=== PATIENT | male | born 1940 | race Caucasian/White ===

== ENCOUNTER 2020-02-27 10:50 | Inpatient (IN) | payer MEDICARE, BC ==
[2020-02-27] MEDS ORDERED: Acetaminophen 500 MG Tab PO ONE (11:13)
[2020-02-27] MEDS ORDERED: Ondansetron 4 MG/2 ML SDV IVPUSH ONE (11:14)
[2020-02-27] MEDS ORDERED: Sodium Chloride 0.9% 1,000 ML IV SCH (11:15)
--- NOTE | 2020-02-27 11:43 | CR ---
[id number] RAD/RAD Chest PA or AP 1V EXAM: FRONTAL CHEST INDICATION: FEVER, COUGH COMPARISON: None. DISCUSSION: Left greater than right base infiltrates. Borderline heart size without evidence of congestive heart failure. IMPRESSION: 1. Left greater than right base infiltrates. Cristian Morris MD 02/27/20 1142 Thank you for allowing us to participate in the care of your patient.
[2020-02-27] MEDS ORDERED: Azithromycin 500 MG in Sodium Chloride 0.9% 250 ML IV ONE (11:52)
[2020-02-27] MEDS ORDERED: cefTRIAXone 2 GM Vial IVPUSH ONE (11:53)
--- NOTE | 2020-02-27 11:56 | EDM.PDOC ---
ED HPI GENERAL MEDICAL PROBLEM - General Chief Complaint: Fever Stated Complaint: FEVER/COUGH/HEADACHE Time Seen by Provider: 02/27/20 11:19 Source of Information: Reports: Patient History Limitations: Reports: No Limitations - History of Present Illness INITIAL COMMENTS - FREE TEXT/NARRATIVE: Presents emergency room with his son for increasing weakness fever headache body aches chills. Patient was tested for Covid-19 4 days ago results are pending. Patient has been progressively getting worse in the past week. Denies any acute shortness of breath chest pain or abdominal pain. He notes does have a nonproductive cough. He does note having some intermittent nausea with no vomiting. Patient otherwise is healthy 79-year-old male does not take any home medications, medical history consists of BPH and history of UTIs in the past. He has had some orthopedic surgeries as well. The patient denies any known Covid-19 exposures. - Related Data Allergies Allergy/AdvReac Type Severity Reaction Status Date / Time latex Allergy blisters Verified 07/09/16 08:10 on hands chocolate flavor AdvReac Other Verified 07/09/16 08:10 egg AdvReac Rash Verified 07/09/16 08:10 Home Meds: Home Meds Cement-3 Fatty Acids [Fish Oil] 300 mg PO DAILY 06/10/16 [History] Non-Formulary Medication [NF Drug] 1 tab PO BID 07/09/16 [History] Non-Formulary Medication [NF Drug] 2 tab PO BID 07/09/16 [History] Past Medical History HEENT History: Cardiovascular History: Reports: None Other Cardiovascular History: Hyperlipidemia Respiratory History: Reports: None Gastrointestinal History: Reports: GERD Other Gastrointestinal History: throat surgery Genitourinary History: Reports: None Musculoskeletal History: Reports: Fracture Other Musculoskeletal History: 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, 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 Denies: Wheezing, Pleuritic Chest Pain Cardiovascular: Denies: Chest Pain, Palpitations, Syncope Endocrine: Reports: Fatigue GI/Abdominal: Reports: Nausea. Denies: Abdominal Pain, Vomiting Musculoskeletal: Reports: Muscle Pain Skin: Denies: Rash Neurological: Reports: Headache Psychiatric: Reports: No Symptoms Hematologic/Lymphatic: Reports: No Symptoms ED EXAM, SEPSIS - Physical Exam Exam: See Below Exam Limited By: No Limitations General Appearance: Alert, WD/WN, No Apparent Distress Ears: Normal External Exam, Normal TMs Nose: Normal Inspection, Normal Mucosa Throat/Mouth: Normal Inspection, Normal Lips, Normal Oropharynx Head: Atraumatic, Normocephalic Neck: Normal Inspection, Supple, Non-Tender Respiratory/Chest: No Respiratory Distress, No Accessory Muscle Use, Chest Non-Tender, Decreased Breath Sounds, Other (bilateral lower diminished breath sounds). No: Wheezing Cardiovascular: Normal Peripheral Pulses, Regular Rate, Rhythm, No Edema, No Murmur Peripheral Pulses: 2+: Radial (L), Radial (R), Posterior Tibial (L), Posterior Tibial (R), Dorsalis Pedis (L), Dorsalis Pedis (R) GI/Abdominal Exam: Normal Bowel Sounds, Soft, Non-Tender Back: Normal Inspection, Full Range of Motion Extremities: Normal Inspection, Normal Range of Motion, Non-Tender, No Pedal Edema. No: Bjorn's Sign Neurological: Alert, Oriented, Normal Cognition Psychiatric: Normal Mood Skin: Warm, Intact, No Rash, Diaphoretic Course - Vital Signs Last Recorded V/S: Last Vital Signs Temp 101.8 F H 02/27/20 11:00 Pulse 77 02/27/20 11:00 Resp 18 02/27/20 11:00 BP 125/74 02/27/20 11:00 Pulse Ox 92 L 02/27/20 11:00 - Orders/Labs/Meds Orders: Active Orders 24 hr Category Date Time Status CBC WITH AUTO DIFF [HEME] Stat Lab 02/27/20 11:11 Ordered CMP [COMPREHENSIVE METABOLIC PN,CMP] [CHEM] Stat Lab 02/27/20 11:11 Ordered CULTURE BLOOD [BC] Stat Lab 02/27/20 11:23 Ordered CULTURE BLOOD [BC] Stat Lab 02/27/20 11:23 Ordered LACTIC ACID [CHEM] Stat Lab 02/27/20 11:20 Ordered Sodium Chloride 0.9% [Normal Saline] 1,000 ml Med 02/27/20 11:15 Active IV ASDIRECTED Blood Culture x2 Reflex Set [OM.PC] Stat Oth 02/27/20 11:23 Ordered Medication Orders Sodium Chloride (Normal Saline) 1,000 mls @ 500 mls/hr IV ASDIRECTED JOSE D Meds: Medications Generic Name Dose Route Start Last Admin Trade Name Freq PRN Reason Stop Dose Admin Sodium Chloride 1,000 mls @ 500 mls/hr 02/27/20 11:15 Normal Saline IV ASDIRECTED JOSE D Discontinued Medications Generic Name Dose Route Start Last Admin Trade Name Freq PRN Reason Stop Dose Admin Acetaminophen 1,000 mg 02/27/20 11:13 Tylenol Extra Strength PO 02/27/20 11:14 ONETIME ONE Ondansetron HCl 4 mg 02/27/20 11:14 Zofran IVPUSH 02/27/20 11:15 ONETIME ONE - Re-Assessments/Exams Free Text/Narrative Re-Assessment/Exam: 02/27/20 12:41 Fluids and antibiotics were given after blood cultures drawn. Patient was retested for COVID-19 and influenza a and B. Results are pending. Labs essentially are negative and normal lactic, slightly elevated anion gap. His blood pressures have been stable no low mean arterial pressures. Patient did have sp08 between 90 to 91% on room air with no respiratory distress. We did place him on 1 1/2 L of oxygen and his SPO2 is 96%. Patient has no distress no respiratory distress no cough. Full COVID-19 PPE guidelines were carried out throughout the entire visit. Family were updated via phone on patient's plan of care. I did consult Carlos Vincent BUSINESS EDUCATION PROFESSOR who is on-call and he accepted his care. Free Text/Narrative Re-Assessment/Exam: Spoke with Belia MCGOVERN on-call Carlos she excepted Dileep's care. Patient was transferred to the floor for admission. Family were updated via phone. 02/27/20 13:02 Departure - Departure Time of Disposition: 13:02 Disposition: Admitted As Inpatient 68 Condition: Good Clinical Impression: Pneumonia Qualifiers: Pneumonia type: due to unspecified organism Laterality: bilateral Lung location: lower lobe of lung Qualified Code(s): J18.9 - Pneumonia, unspecified organism - Discharge Information *PRESCRIPTION DRUG MONITORING PROGRAM REVIEWED*: No *COPY OF PRESCRIPTION DRUG MONITORING REPORT IN PATIENT GAUTAM: No Referrals: Hemalatha Wang, BUSINESS EDUCATION PROFESSOR [Primary Care Provider] - Sepsis Event Note (ED) - Evaluation Sepsis Screening Result: No Definite Risk - Focused Exam Vital Signs: Vital Signs Temp Pulse Resp BP Pulse Ox 02/27/20 11:00 101.8 F H 77 18 125/74 92 L - My Orders Last 24 Hours: My Active Orders 02/27/20 11:11 CBC WITH AUTO DIFF [HEME] Stat CMP [COMPREHENSIVE METABOLIC PN,CMP] [CHEM] Stat 02/27/20 11:15 Sodium Chloride 0.9% [Normal Saline] 1,000 ml IV ASDIRECTED 02/27/20 11:20 LACTIC ACID [CHEM] Stat 02/27/20 11:23 CULTURE BLOOD [BC] Stat CULTURE BLOOD [BC] Stat Blood Culture x2 Reflex Set [OM.PC] Stat - Assessment/Plan Last 24 Hours: My Active Orders 02/27/20 11:11 CBC WITH AUTO DIFF [HEME] Stat CMP [COMPREHENSIVE METABOLIC PN,CMP] [CHEM] Stat 02/27/20 11:15 Sodium Chloride 0.9% [Normal Saline] 1,000 ml IV ASDIRECTED 02/27/20 11:20 LACTIC ACID [CHEM] Stat 02/27/20 11:23 CULTURE BLOOD [BC] Stat CULTURE BLOOD [BC] Stat Blood Culture x2 Reflex Set [OM.PC] Stat
[2020-02-27 12:17] LABS: ANION GAP 17.3 mmol/L (5-15); CHLORIDE,CL 99 mmol/L (98-115); SODIUM,NA 136 mmol/L (136-145)
[2020-02-27] MEDS: Sodium Chloride 0.9% 1,000 ML IV SCH (15:43)
[2020-02-27] MEDS ORDERED: Acetaminophen 325 MG Tab ONE (19:42)
[2020-02-27] MEDS: Acetaminophen 325 MG Tab PO PRN (19:55)
[2020-02-28] MEDS: Sodium Chloride 0.9% 1,000 ML IV SCH ×2 (00:08→09:02)
[2020-02-28] MEDS: Acetaminophen 325 MG Tab PO PRN ×5 (00:08→20:35)
--- NOTE | 2020-02-28 10:59 | PCM.HP.2 ---
H&P History of Present Illness - General Date of Service: 02/28/20 Admit Problem/Dx: Admission Diagnosis/Problem Admission Diagnosis/Problem Pneumonia Source of Information: Patient, Provider, Significant Other History Limitations: Reports: No Limitations Generalized Pain Score (Numeric/FACES): 4 - Related Data Allergies/Adverse Reactions: Allergies Allergy/AdvReac Type Severity Reaction Status Date / Time latex Allergy blisters Verified 02/27/20 15:34 on hands chocolate flavor AdvReac Other Verified 02/27/20 15:34 Home Medications: Home Meds Frannie-3 Fatty Acids [Fish Oil] 300 mg PO DAILY 06/10/16 [History] Non-Formulary Medication [NF Drug] 1 tab PO BID 07/09/16 [History] Non-Formulary Medication [NF Drug] 2 tab PO BID 07/09/16 [History] Past Medical History HEENT History: Cardiovascular History: Reports: None Other Cardiovascular History: Hyperlipidemia Respiratory History: Reports: None Gastrointestinal History: Reports: GERD Other Gastrointestinal History: throat surgery Genitourinary History: Reports: None Musculoskeletal History: Reports: Fracture Other Musculoskeletal History: 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, 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, right shoulder surgery Neurological History: Reports: None Psychiatric History: Reports: None Endocrine/Metabolic History: Reports: None Hematologic History: Reports: None Immunologic History: Reports: None Oncologic (Cancer) History: Reports: None Dermatologic History: Reports: None - Past Surgical History GI Surgical History: Social & Family History - Tobacco Use Smoking Status *Q: Never Smoker - Caffeine Use Caffeine Use: Reports: Coffee - Recreational Drug Use Recreational Drug Use: No H&P Review of Systems - Review of Systems: Review Of Systems: See Below General: Reports: Fever, Night Sweats, Diaphoresis. Denies: Chills HEENT: Reports: No Symptoms Pulmonary: Reports: Shortness of Breath, Cough, Sputum. Denies: Wheezing Cardiovascular: Reports: No Symptoms Gastrointestinal: Reports: No Symptoms Genitourinary: Reports: No Symptoms Musculoskeletal: Reports: No Symptoms Skin: Reports: No Symptoms Psychiatric: Reports: No Symptoms Neurological: Reports: No Symptoms Hematologic/Lymphatic: Reports: No Symptoms Immunologic: Reports: No Symptoms Exam - Exam Exam: See Below - Vital Signs Vital Signs: Last Vital Signs Temp 99.2 F 02/28/20 06:54 Pulse 77 02/28/20 06:37 Resp 20 02/28/20 06:37 BP 125/63 02/28/20 06:37 Pulse Ox 92 L 02/28/20 06:37 Weight: 181 lb 1.6 oz - Exam Quality Assessment: Supplemental Oxygen General: Alert, Oriented, Cooperative, Mild Distress HEENT: PERRLA, Hearing Intact, Mucosa Moist & [place], Nares Patent, Normal Nasal Septum, Posterior Pharynx Clear, Conjunctiva Clear, EOMI, EACs Clear, TMs Clear Neck: Supple Lungs: Rhonchi Cardiovascular: Regular Rate, Regular Rhythm, Normal S1, Normal S2 GI/Abdominal Exam: Normal Bowel Sounds, Soft (Male) Exam: Deferred Back Exam: No: CVA Tenderness (R) Extremities: No Pedal Edema Peripheral Pulses: 2+: Radial (R), Femoral (L) Skin: Warm, Dry, Intact Neurological: Cranial Nerves Intact, Reflexes Equal Bilateral Neuro Extensive - Mental Status: Alert, Oriented x3, Normal Mood/Affect, Normal Cognition Neuro Extensive - Motor, Sensory, Reflexes: CN II-XII Intact, Normal Gait, Normal Reflexes Psychiatric: Alert, Normal Affect, Normal Mood - Patient Data Lab Results Last 24 hrs: Laboratory Results - last 24 hr 02/27/20 02/27/20 02/27/20 Range/Units 11:35 11:35 11:45 WBC 4.13 L (5.00-10.00) 10^3/uL RBC 4.93 (4.50-6.00) 10^6/uL Hgb 13.6 (13.0-17.0) g/dL Hct 39.4 L (40.0-52.0) % MCV 79.9 L (82.0-92.0) fL MCH 27.6 (27.0-31.0) pg MCHC 34.5 (32.0-36.0) g/dL RDW 13.8 (11.5-14.5) % Plt Count 152 (150-400) 10^3/uL MPV 10.2 (7.4-10.4) fL Immature Gran % (Auto) 0.2 (0.0-5.0) % Neut % (Auto) 65.1 (50.0-70.0) % Lymph % (Auto) 23.5 (20.0-40.0) % Ramsey % (Auto) 10.7 H (2.0-8.0) % Eos % (Auto) 0.0 L (1.0-3.0) % Baso % (Auto) 0.5 (0.0-1.0) % Neut # (Auto) 2.69 (2.50-7.00) 10^3/uL Lymph # (Auto) 0.97 L (1.00-4.00) 10^3/uL Ramsey # (Auto) 0.44 (0.10-0.80) 10^3/uL Eos # (Auto) 0.00 L (0.10-0.30) 10^3/uL Baso # (Auto) 0.02 (0.00-0.10) 10^3/uL Immature Gran # (Auto) 0.01 (0.00-0.50) 10^3/uL Sodium 136 (136-145) mmol/L Potassium 4.1 (3.3-5.3) mmol/L Chloride 99 (98-115) mmol/L Carbon Dioxide 23.8 (21.0-32.0) mmol/L Anion Gap 17.3 H (5-15) mmol/L BUN 17 (6-25) mg/dL Creatinine 0.85 (0.51-1.17) mg/dL Est Cr Clr Drug Dosing 75.15 mL/min Estimated GFR (MDRD) > 60 mL/min Glucose 109 H (75 - 99) mg/dL Lactic Acid 1.0 (0.4-2.0) mmol/L Calcium 7.6 L (8.7-10.3) mg/dL Total Bilirubin 0.4 (0.2-1.0) mg/dL AST 39 H (15-37) U/L ALT 47 (12-78) U/L Alkaline Phosphatase 83 (46-116) IU/L Total Protein 7.1 (6.4-8.2) g/dL Albumin 3.27 (3.00-4.80) g/dL SARS CoV-2 RNA Rapid BILLIE (NEGATIVE) 02/27/20 Range/Units 11:46 WBC (5.00-10.00) 10^3/uL RBC (4.50-6.00) 10^6/uL Hgb (13.0-17.0) g/dL Hct (40.0-52.0) % MCV (82.0-92.0) fL MCH (27.0-31.0) pg MCHC (32.0-36.0) g/dL RDW (11.5-14.5) % Plt Count (150-400) 10^3/uL MPV (7.4-10.4) fL Immature Gran % (Auto) (0.0-5.0) % Neut % (Auto) (50.0-70.0) % Lymph % (Auto) (20.0-40.0) % Ramsey % (Auto) (2.0-8.0) % Eos % (Auto) (1.0-3.0) % Baso % (Auto) (0.0-1.0) % Neut # (Auto) (2.50-7.00) 10^3/uL Lymph # (Auto) (1.00-4.00) 10^3/uL Ramsey # (Auto) (0.10-0.80) 10^3/uL Eos # (Auto) (0.10-0.30) 10^3/uL Baso # (Auto) (0.00-0.10) 10^3/uL Immature Gran # (Auto) (0.00-0.50) 10^3/uL Sodium (136-145) mmol/L Potassium (3.3-5.3) mmol/L Chloride (98-115) mmol/L Carbon Dioxide (21.0-32.0) mmol/L Anion Gap (5-15) mmol/L BUN (6-25) mg/dL Creatinine (0.51-1.17) mg/dL Est Cr Clr Drug Dosing mL/min Estimated GFR (MDRD) mL/min Glucose (75 - 99) mg/dL Lactic Acid (0.4-2.0) mmol/L Calcium (8.7-10.3) mg/dL Total Bilirubin (0.2-1.0) mg/dL AST (15-37) U/L ALT (12-78) U/L Alkaline Phosphatase (46-116) IU/L Total Protein (6.4-8.2) g/dL Albumin (3.00-4.80) g/dL SARS CoV-2 RNA Rapid BILLIE Negative (NEGATIVE) Result Diagrams: 02/27/20 11:45 02/27/20 11:35 Sohail Results Last 24 hrs: Microbiology 02/27/20 11:46 Influenza Type A Antigen Screen - Final Nasopharyngeal Swab NEGATIVE INFLUENZA A VIRUS AG REFERENCE RANGE: NEGATIVE Influenza Type B Antigen Screen - Final NEGATIVE INFLUENZA B VIRUS AG REFERENCE RANGE: NEGATIVE Sepsis Event Note - Evaluation Sepsis Screening Result: No Definite Risk - Focused Exam Vital Signs: Vital Signs Temp Temp Pulse Resp BP Pulse Ox 02/28/20 06:54 99.2 F 02/28/20 06:37 101.4 F H 77 20 125/63 92 L 02/28/20 06:24 101.5 F H 02/28/20 03:00 100.4 F 65 16 112/62 92 L 02/28/20 00:38 99.8 F 02/28/20 00:08 99.4 F 02/27/20 23:00 100.5 F 63 20 101/51 L 94 L Problem List Initiated/Reviewed/Updated: Yes Orders Last 24hrs: Active Orders 24 hr Category Date Time Status Admission Status [Patient Status] [ADT] Routine ADT 02/27/20 13:40 Active Height and Weight [RC] UPON Care 02/27/20 15:17 Active Intake and Output [RC] 1400,2200,0600 Care 02/27/20 15:18 Active May Shower [RC] ASDIRECTED Care 02/27/20 15:17 Active Up to Chair [RC] ASDIRECTED Care 02/27/20 15:17 Active Regular Diet [DIET] Diet 02/27/20 Dinner Active CULTURE BLOOD [BC] Stat Lab 02/27/20 11:35 Received CULTURE BLOOD [BC] Stat Lab 02/27/20 11:45 Received PROCALCITONIN [REF] Routine Lab 02/27/20 11:45 Received Acetaminophen [TylenoL] Med 02/27/20 19:32 Active 650 mg PO Q4H PRN Sodium Chloride 0.9% [Normal Saline] 1,000 ml Med 02/27/20 11:15 Active IV ASDIRECTED Sodium Chloride 0.9% [Normal Saline] 1,000 ml Med 02/27/20 15:00 Active IV ASDIRECTED Blood Culture x2 Reflex Set [OM.PC] Stat Oth 02/27/20 11:23 Ordered Isolation [COMM] Routine Oth 02/27/20 12:26 Ordered Resuscitation Status Routine Resus Stat 02/27/20 15:17 Ordered Medication Orders Acetaminophen (Tylenol) 650 mg PO Q4H PRN PRN Reason: Pain/Fever Last Admin: 02/28/20 06:24 Dose: 650 mg Documented by: Admin: 02/28/20 00:08 Dose: 650 mg Documented by: Admin: 02/27/20 19:55 Dose: 650 mg Documented by: TIAN Sodium Chloride (Normal Saline) 1,000 mls @ 500 mls/hr IV ASDIRECTED [facility] Last Admin: 02/27/20 12:10 Dose: 500 mls/hr Documented by: ORI Sodium Chloride (Normal Saline) 1,000 mls @ 125 mls/hr IV ASDIRECTED [facility] Last Admin: 02/28/20 09:02 Dose: 125 mls/hr Documented by: Infusion: 02/28/20 08:08 Dose: 125 mls/hr Documented by: Admin: 02/28/20 00:08 Dose: 125 mls/hr Documented by: Infusion: 02/27/20 23:43 Dose: 125 mls/hr Documented by: Admin: 02/27/20 15:43 Dose: 125 mls/hr Documented by: YASH Assessment/Plan Comment:: History of present illness Dileep is a 79-year-old gentleman was admitted through the ED with a diagnoses of pneumonia. Patient did note some over the past week he has had increasing and fever, weakness, body aches and chills along with an nonproductive cough. He had Covid 19 testing 4 days ago which was still pending. He does admit to history of BPH with multiple UTIs in the past. Otherwise relatively healthy. Pertinent ED workup/findings Chest x-ray, bilateral pulmonary infiltrates Vital signs, map greater than 70 O2 sats 91%, T: 101.8 Negative inflammatory markers Negative Covid 19 Hospital course He was given azithromycin and Rocephin in the ED along with IV fluids. Overnight did have fever greater than 101 with night sweats Primary hospital problems Pneumonia, CAP, POA, Suspect viral etiology Disposition/overall plan --Although suspect viral etiology, will add Procan calcitonin and continue antibiotics until further workup --incentive spirometer --Oxygen to keep sats greater than 94% - Mortality Measure Prognosis:: Good
[2020-02-28] MEDS ORDERED: Azithromycin 500 MG in Sodium Chloride 0.9% 250 ML IV SCH ×2 (12:30→13:30)
[2020-02-28] MEDS ORDERED: cefTRIAXone 1 GM Vial IVPUSH SCH (12:30)
[2020-02-28 15:02] LABS: ANION GAP 19.3 mmol/L (5-15); CHLORIDE,CL 100 mmol/L (98-115); SODIUM,NA 135 mmol/L (136-145)
[2020-02-28] MEDS ORDERED: Piperacillin/Tazobactam/Dext 3.375 GM in Premix Bag 1 BAG IV SCH (16:00)
[2020-02-28] MEDS ORDERED: Sodium Chloride 0.9% 1,000 ML IV SCH (16:15)
[2020-02-28] MEDS: Albuterol 0.083% 2.5 MG/3 ML Neb Soln NEB SCH ×2 (17:13→20:53)
[2020-02-28] MEDS ORDERED: Furosemide 40 MG/4 ML VIAL IVPUSH ONE (19:40)
[2020-02-28] MEDS ORDERED: Ibuprofen 400 MG Tab PO PRN (19:59)
[2020-02-28 21:05] VITALS: BP 142/64
[2020-02-28 21:14] VITALS: PULSE 82
--- NOTE | 2020-02-28 21:32 | PCM.DCSUM1 ---
Discharge Summary - Hospital Course Free Text/Narrative:: Date of admission: 02/27/2020 Date of discharge: 02/28/2020 Admission diagnoses: #CA pneumonia, suspect viral Discharge diagnoses: #Acute hypoxic respiratory failure #Sepsis #Pneumonia, bilateral, suspect viral Consultations: Dr Lopez, [facility] for transfer Procedures: None Hospital course: Dileep is a 79-year-old gentleman was admitted through the ED with a diagnoses of pneumonia. Patient did note some over the past week he has had increasing and fever, weakness, body aches and chills along with an nonproductive cough. He had Covid 19 testing 4 days ago which was still pending. He does admit to history of BPH with multiple UTIs in the past. Otherwise relatively healthy. Pertinent ED workup/findings Chest x-ray, bilateral pulmonary infiltrates Vital signs, map greater than 70 O2 sats 91%, T: 101.8 Negative inflammatory markers Negative Covid 19 He was given azithromycin and Rocephin in the ED along with IV fluids. Overnight did have fever greater than 101 with night sweats 02/28/2020: Patient continued to have fever with high of 103.1, rigors and in creased oxygen demand. Blood gases completed showing pH 7.5, PCO2 27, PO2 56, HCO3 20, ABG O2sat 91.2, ABG base excess -4. Oxygen was increased to 10L/mask with difficulty maintaining oxygen saturation. Call placed for consult with Dr. Lopez in [facility] for transfer to higher level of care due to worsening oxygenation and breathing fatigue. He was accepted for admission to [facility] and transferred by EMS. Discharge and follow-up recommendations: - Discharge to [facility] via EMS, accepted by Dr. Lopez - New medications at discharge: none - Follow-up post hospitalization. - Discharge Data Discharge Date: 02/28/20 Discharge Disposition: DC/Tfer to Acute Hospital 02 Condition: Poor - Referral to Home Health Primary Care Physician: Hemalatha Wang NP - Discharge Plan *PRESCRIPTION DRUG MONITORING PROGRAM REVIEWED*: No *COPY OF PRESCRIPTION DRUG MONITORING REPORT IN PATIENT GAUTAM: No Home Medications: Home Meds [place]-3 Fatty Acids [Fish Oil] 300 mg PO DAILY 06/10/16 [History] Non-Formulary Medication [NF Drug] 1 tab PO BID 07/09/16 [History] Non-Formulary Medication [NF Drug] 2 tab PO BID 07/09/16 [History] - Discharge Summary/Plan Comment DC Time >30 min.: Yes - General Info Date of Service: 02/28/20 Subjective Update: 79 year old male sitting up in bed, increased work of breathing. Slow to answer, reports shortness of breath. - Review of Systems General: Reports: Fever, Weakness, Fatigue, Chills, Night Sweats. Denies: Appetite HEENT: Denies: Headaches, Sinus Congestion, Sore Throat Pulmonary: Reports: Shortness of Breath, Cough. Denies: Wheezing Cardiovascular: Denies: Chest Pain, Palpitations, Edema Gastrointestinal: Denies: Abdominal Pain, Diarrhea, Nausea, Vomiting Genitourinary: Denies: Dysuria, Incontinence, Hematuria Musculoskeletal: Denies: Neck Pain, Leg Pain, Joint Swelling Skin: Denies: Cyanosis, Diaphoresis, Rash Neurological: Reports: Weakness, Other (Slow to answer). Denies: Confusion - Patient Data Vitals - Most Recent: Last Vital Signs Temp 38.8 C H 02/28/20 21:00 Pulse 82 02/28/20 21:12 Resp 36 H 02/28/20 21:12 BP 142/64 H 02/28/20 21:00 Pulse Ox 88 L 02/28/20 21:12 Weight - Most Recent: 82.146 kg I&O - Last 24 hours: Intake & Output 02/28/20 02/28/20 02/28/20 06:59 14:59 22:59 Intake Total 1330 1277 Output Total 450 400 Balance 880 877 Lab Results - Last 24 hrs: Laboratory Results - last 24 hr 02/28/20 02/28/20 02/28/20 Range/Units 13:25 13:25 13:25 WBC 4.27 L (5.00-10.00) 10^3/uL RBC 4.62 (4.50-6.00) 10^6/uL Hgb 12.9 L (13.0-17.0) g/dL Hct 37.5 L (40.0-52.0) % MCV 81.2 L (82.0-92.0) fL MCH 27.9 (27.0-31.0) pg MCHC 34.4 (32.0-36.0) g/dL RDW 14.3 (11.5-14.5) % Plt Count 137 L (150-400) 10^3/uL MPV 10.3 (7.4-10.4) fL Immature Gran % (Auto) 0.5 (0.0-5.0) % Neut % (Auto) 72.0 H (50.0-70.0) % Lymph % (Auto) 21.8 (20.0-40.0) % [place] % (Auto) 5.2 (2.0-8.0) % Eos % (Auto) 0.0 L (1.0-3.0) % Baso % (Auto) 0.5 (0.0-1.0) % Neut # (Auto) 3.08 (2.50-7.00) 10^3/uL Lymph # (Auto) 0.93 L (1.00-4.00) 10^3/uL [place] # (Auto) 0.22 (0.10-0.80) 10^3/uL Eos # (Auto) 0.00 L (0.10-0.30) 10^3/uL Baso # (Auto) 0.02 (0.00-0.10) 10^3/uL Immature Gran # (Auto) 0.02 (0.00-0.50) 10^3/uL POC ABG pH (7.35-7.45) pH ABG pH POC ABG pCO2 (35-48) mmHg ABG pCO2 POC ABG pO2 (83-108) mmHg ABG pO2 POC ABG HCO3 (21-28) mmol/L ABG HCO3 ABG Total CO2 ABG O2 Sat (Calculated) (94-98) % ABG O2 Saturation POC ABG Base Excess (-2-3) mmol/L ABG Base Excess O2 Delivery Device Oxygen Flow Rate Blood Gas Comments Sodium 135 L (136-145) mmol/L Potassium 4.2 (3.3-5.3) mmol/L Chloride 100 (98-115) mmol/L Carbon Dioxide 19.9 L (21.0-32.0) mmol/L Anion Gap 19.3 H (5-15) mmol/L BUN 16 (6-25) mg/dL Creatinine 0.78 (0.51-1.17) mg/dL Est Cr Clr Drug Dosing 81.89 mL/min Estimated GFR (MDRD) > 60 mL/min Glucose 134 H (75 - 99) mg/dL Lactic Acid 2.1 H (0.4-2.0) mmol/L Calcium 7.6 L (8.7-10.3) mg/dL C-Reactive Protein (0.0-0.9) mg/dL Specimen Type Urine Color (YELLOW) Urine Appearance (CLEAR) Urine pH (5.0-9.0) Ur Specific [place] (1.005-1.030) Urine Protein (NEGATIVE) mg/dL Urine Glucose (UA) (NEGATIVE) mg/dL Urine Ketones (NEGATIVE) mg/dL Urine Occult Blood (NEGATIVE) Urine Nitrite (NEGATIVE) Urine Bilirubin (NEGATIVE) Urine Urobilinogen (0.2-1.0) E.U./dL Ur Leukocyte Esterase (NEGATIVE) Urine RBC (0-5) /HPF Urine WBC (0-5) /HPF Ur Epithelial Cells /LPF Amorphous Sediment (0/HPF) /HPF Urine Bacteria (NONE TO FEW) /HPF Urine Mucus (NEGATIVE) /LPF 02/28/20 02/28/20 02/28/20 Range/Units 13:25 13:32 13:32 WBC (5.00-10.00) 10^3/uL RBC (4.50-6.00) 10^6/uL Hgb (13.0-17.0) g/dL Hct (40.0-52.0) % MCV (82.0-92.0) fL MCH (27.0-31.0) pg MCHC (32.0-36.0) g/dL RDW (11.5-14.5) % Plt Count (150-400) 10^3/uL MPV (7.4-10.4) fL Immature Gran % (Auto) (0.0-5.0) % Neut % (Auto) (50.0-70.0) % Lymph % (Auto) (20.0-40.0) % [place] % (Auto) (2.0-8.0) % Eos % (Auto) (1.0-3.0) % Baso % (Auto) (0.0-1.0) % Neut # (Auto) (2.50-7.00) 10^3/uL Lymph # (Auto) (1.00-4.00) 10^3/uL [place] # (Auto) (0.10-0.80) 10^3/uL Eos # (Auto) (0.10-0.30) 10^3/uL Baso # (Auto) (0.00-0.10) 10^3/uL Immature Gran # (Auto) (0.00-0.50) 10^3/uL POC ABG pH 7.5 H (7.35-7.45) pH ABG pH Cancelled POC ABG pCO2 27 L (35-48) mmHg ABG pCO2 Cancelled POC ABG pO2 56 L (83-108) mmHg ABG pO2 Cancelled POC ABG HCO3 20 L (21-28) mmol/L ABG HCO3 Cancelled ABG Total CO2 Cancelled ABG O2 Sat (Calculated) 91.2 L (94-98) % ABG O2 Saturation Cancelled POC ABG Base Excess -4 L (-2-3) mmol/L ABG Base Excess Cancelled O2 Delivery Device Cancelled Oxygen Flow Rate Cancelled Blood Gas Comments Cancelled Sodium (136-145) mmol/L Potassium (3.3-5.3) mmol/L Chloride (98-115) mmol/L Carbon Dioxide (21.0-32.0) mmol/L Anion Gap (5-15) mmol/L BUN (6-25) mg/dL Creatinine (0.51-1.17) mg/dL Est Cr Clr Drug Dosing mL/min Estimated GFR (MDRD) mL/min Glucose (75 - 99) mg/dL Lactic Acid (0.4-2.0) mmol/L Calcium (8.7-10.3) mg/dL C-Reactive Protein 9.7 H (0.0-0.9) mg/dL Specimen Type Urine Color (YELLOW) Urine Appearance (CLEAR) Urine pH (5.0-9.0) Ur Specific [place] (1.005-1.030) Urine Protein (NEGATIVE) mg/dL Urine Glucose (UA) (NEGATIVE) mg/dL Urine Ketones (NEGATIVE) mg/dL Urine Occult Blood (NEGATIVE) Urine Nitrite (NEGATIVE) Urine Bilirubin (NEGATIVE) Urine Urobilinogen (0.2-1.0) E.U./dL Ur Leukocyte Esterase (NEGATIVE) Urine RBC (0-5) /HPF Urine WBC (0-5) /HPF Ur Epithelial Cells /LPF Amorphous Sediment (0/HPF) /HPF Urine Bacteria (NONE TO FEW) /HPF Urine Mucus (NEGATIVE) /LPF 02/28/20 02/28/20 Range/Units 18:35 19:18 WBC (5.00-10.00) 10^3/uL RBC (4.50-6.00) 10^6/uL Hgb (13.0-17.0) g/dL Hct (40.0-52.0) % MCV (82.0-92.0) fL MCH (27.0-31.0) pg MCHC (32.0-36.0) g/dL RDW (11.5-14.5) % Plt Count (150-400) 10^3/uL MPV (7.4-10.4) fL Immature Gran % (Auto) (0.0-5.0) % Neut % (Auto) (50.0-70.0) % Lymph % (Auto) (20.0-40.0) % [place] % (Auto) (2.0-8.0) % Eos % (Auto) (1.0-3.0) % Baso % (Auto) (0.0-1.0) % Neut # (Auto) (2.50-7.00) 10^3/uL Lymph # (Auto) (1.00-4.00) 10^3/uL [place] # (Auto) (0.10-0.80) 10^3/uL Eos # (Auto) (0.10-0.30) 10^3/uL Baso # (Auto) (0.00-0.10) 10^3/uL Immature Gran # (Auto) (0.00-0.50) 10^3/uL POC ABG pH 7.5 H (7.35-7.45) pH ABG pH POC ABG pCO2 27 L (35-48) mmHg ABG pCO2 POC ABG pO2 52 L (83-108) mmHg ABG pO2 POC ABG HCO3 20 L (21-28) mmol/L ABG HCO3 ABG Total CO2 ABG O2 Sat (Calculated) 89.1 L (94-98) % ABG O2 Saturation POC ABG Base Excess -4 L (-2-3) mmol/L ABG Base Excess O2 Delivery Device Oxygen Flow Rate Blood Gas Comments Sodium (136-145) mmol/L Potassium (3.3-5.3) mmol/L Chloride (98-115) mmol/L Carbon Dioxide (21.0-32.0) mmol/L Anion Gap (5-15) mmol/L BUN (6-25) mg/dL Creatinine (0.51-1.17) mg/dL Est Cr Clr Drug Dosing mL/min Estimated GFR (MDRD) mL/min Glucose (75 - 99) mg/dL Lactic Acid (0.4-2.0) mmol/L Calcium (8.7-10.3) mg/dL C-Reactive Protein (0.0-0.9) mg/dL Specimen Type Urincc Urine Color Yellow (YELLOW) Urine Appearance Cloudy H (CLEAR) Urine pH 6.0 (5.0-9.0) Ur Specific [place] 1.025 (1.005-1.030) Urine Protein 30 H (NEGATIVE) mg/dL Urine Glucose (UA) Negative (NEGATIVE) mg/dL Urine Ketones Trace H (NEGATIVE) mg/dL Urine Occult Blood Small H (NEGATIVE) Urine Nitrite Negative (NEGATIVE) Urine Bilirubin Negative (NEGATIVE) Urine Urobilinogen 0.2 (0.2-1.0) E.U./dL Ur Leukocyte Esterase Negative (NEGATIVE) Urine RBC 0-5 (0-5) /HPF Urine WBC 0-5 (0-5) /HPF Ur Epithelial Cells Few /LPF Amorphous Sediment Moderate H (0/HPF) /HPF Urine Bacteria Moderate H (NONE TO FEW) /HPF Urine Mucus Few H (NEGATIVE) /LPF MARITZA Results - Last 24 hrs: Microbiology 02/27/20 11:45 Aerobic Blood Culture - Preliminary Blood - Arm, Left NO GROWTH AFTER 1 DAY Anaerobic Blood Culture - Preliminary NO GROWTH AFTER 1 DAY 02/27/20 11:35 Aerobic Blood Culture - Preliminary Blood - Arm, Right NO GROWTH AFTER 1 DAY Anaerobic Blood Culture - Preliminary NO GROWTH AFTER 1 DAY Med Orders - Current: Current Medications Acetaminophen (Tylenol) 650 mg PO Q4H PRN PRN Reason: Pain/Fever Last Admin: 02/28/20 20:35 Dose: 650 mg Documented by: Albuterol (Proventil Neb Soln) 2.5 mg NEB Q4HRRT [facility] Last Admin: 02/28/20 20:53 Dose: 2.5 mg Documented by: Ceftriaxone Sodium (Rocephin) 1 gm IVPUSH Q24H [facility] Last Admin: 02/28/20 13:30 Dose: 1 gm Documented by: Piperacillin/Tazobactam/ (Dextrose 3.375 gm/ Premix) 50 mls @ 100 mls/hr IV Q6H [facility] Last Admin: 02/28/20 17:05 Dose: 100 mls/hr Documented by: Ibuprofen (Motrin) 400 mg PO Q8H PRN PRN Reason: Fever Discontinued Medications Acetaminophen (Tylenol Extra Strength) 1,000 mg PO ONETIME ONE Stop: 02/27/20 11:14 Last Admin: 02/27/20 12:10 Dose: 1,000 mg Documented by: Acetaminophen (Tylenol) Confirm Administered Dose 650 mg .ROUTE .STK-MED ONE Stop: 02/27/20 19:43 Last Admin: 02/27/20 19:56 Dose: Not Given Documented by: Ceftriaxone Sodium (Rocephin) 2 gm IVPUSH ONETIME ONE Stop: 02/27/20 11:54 Last Admin: 02/27/20 12:20 Dose: 2 gm Documented by: Furosemide (Lasix) 20 mg IVPUSH NOW ONE Stop: 02/28/20 19:41 Last Admin: 02/28/20 19:47 Dose: 20 mg Documented by: Sodium Chloride (Normal Saline) 1,000 mls @ 500 mls/hr IV ASDIRECTED [facility] Last Admin: 02/27/20 12:10 Dose: 500 mls/hr Documented by: Azithromycin 500 mg/ Sodium (Chloride) 250 mls @ 250 mls/hr IV ONETIME ONE Stop: 02/27/20 12:51 Last Admin: 02/27/20 12:45 Dose: 250 mls/hr Documented by: Sodium Chloride (Normal Saline) 1,000 mls @ 125 mls/hr IV ASDIRECTED [facility] Last Admin: 02/28/20 09:02 Dose: 125 mls/hr Documented by: Azithromycin 500 mg/ Sodium (Chloride) 250 mls @ 250 mls/hr IV Q24H [facility] Last Admin: 02/28/20 13:14 Dose: Not Given Documented by: Azithromycin 500 mg/ Sodium (Chloride) 250 mls @ 250 mls/hr IV Q24H [facility] Last Admin: 02/28/20 13:37 Dose: 250 mls/hr Documented by: Sodium Chloride (Normal Saline) 1,000 mls @ 150 mls/hr IV ASDIRECTED [facility] Last Admin: 02/28/20 18:39 Dose: 300 mls/hr Documented by: Ondansetron HCl (Zofran) 4 mg IVPUSH ONETIME ONE Stop: 02/27/20 11:15 Last Admin: 02/27/20 12:11 Dose: 4 mg Documented by: - Exam Physical Findings Comments:: GENERAL: Ill appearing adult in no mild distress with increased work of breathing HEENT: Normocephalic, atraumatic. Conjunctiva clear. Nares patent without discharge. Mucous membranes moist, posterior pharynx unremarkable. NECK: Supple, no masses. CV: Regular rate and rhythm, no murmurs, rubs, or gallops. 2+ radial pulses. PULMONARY: Increased work of breathing, tachypnea, crackles to bilateral bases and middle right, no wheezes. ABDOMEN: Positive bowel sounds, soft, nontender, nondistended. EXTREMITIES: No edema, cyanosis, or clubbing. MUSCULOSKELETAL: Moves all extremities well. NEUROLOGICAL: Slow to respond, but answer appropriately DERMATOLOGIC: No rashes or suspicious lesions in exposed areas. PSYCHIATRIC: Alert, appropriate affect.
== END 2020-02-28 22:03 | DRG 871 ==
LOC: KA.ED 10:50 → KA.MS 13:40
PROVIDERS: ADMIT Physician Assistant Medical; ATTEND Nurse Practitioner Family
DX: J18.9 Pneumonia, unspecified organism (principal); A41.89 Other specified sepsis; J15.9 Unspecified bacterial pneumonia; Z89.029 Acquired absence of unspecified finger(s); Z91.012 Allergy to eggs; Z91.02 Food additives allergy status; J12.9 Viral pneumonia, unspecified; J96.01 Acute respiratory failure with hypoxia; K21.9 Gastro-esophageal reflux disease without esophagitis; E78.5 Hyperlipidemia, unspecified; N40.0 Benign prostatic hyperplasia without lower urinary tract symptoms; Z87.440 Personal history of urinary (tract) infections; Z79.899 Other long term (current) drug therapy; Z91.040 Latex allergy status; Z91.018 Allergy to other foods; Z20.828 Contact with and (suspected) exposure to other viral communicable diseases
CPT/HCPCS: 36415; 36600; 71045; 80048; 80053; 81001; 82803; 83605; 84145; 85025; 86140; 87040; 87804; 94640; 99284; A9270-GY; J0456; J0696; J1940; J2405; J2543; J7030; J7050; J7613-GY; U0002